=== PATIENT | female | born 1985 | race Hispanic/Latino ===

== ENCOUNTER 2021-02-24 22:24 | Emergency (ER) | payer MEDICAID ==
[2021-02-25 00:25] VITALS: BP 134/80
--- NOTE | 2021-02-25 01:27 | Emergency Department Report ---
ED General Adult HPI - General Chief complaint: Extremity Problem,Nontraumatic Stated complaint: SWELLING/PAIN IN LEG/HEADACHE POSS PREECLAMPSIA Time Seen by Provider: 02/25/21 01:25 Source: patient Mode of arrival: Ambulatory Limitations: No Limitations - Related Data Home Medications Medication Instructions Recorded Confirmed Last Taken Pnv,Calcium 72/Iron/Folic Acid 1 tab PO DAILY 12/06/13 01/28/21 12/02/13 08:00 [Pnv Plus Multivit Tab] 1 Previous Rx's Medication Instructions Recorded Last Taken Type Ibuprofen [Motrin 600 MG tab] 600 mg PO Q8H PRN #30 tablet 07/18/16 Unknown Rx Lidocain2.5%/Prilocai2.5% [Emla] 5 gm TP 1XW #1 tube 07/18/16 Unknown Rx Allergies Allergy/AdvReac Type Severity Reaction Status Date / Time No Known Allergies Allergy Verified 07/18/16 05:34 ED Review of Systems ROS: Stated complaint: SWELLING/PAIN IN LEG/HEADACHE POSS PREECLAMPSIA Other details as noted in HPI Comment: All other systems reviewed and negative ED Past Medical Hx - Past Medical History Hx Hypertension: No Hx Diabetes: No Hx Deep Vein Thrombosis: No Hx Renal Disease: No Hx Sickle Cell Disease: No Hx Seizures: No Hx Asthma: No Hx COPD: No Hx HIV: No - Surgical History Past Surgical History?: No - Social History Smoking Status: Current Every Day Smoker Substance Use Type: None - Medications Home Medications: Home Medications Medication Instructions Recorded Confirmed Last Taken Type Pnv,Calcium 72/Iron/Folic Acid 1 tab PO DAILY 12/06/13 01/28/21 12/02/13 08:00 History [Pnv Plus Multivit Tab] 1 Ibuprofen [Motrin 600 MG tab] 600 mg PO Q8H PRN #30 tablet 07/18/16 01/28/21 Unknown Rx Lidocain2.5%/Prilocai2.5% [Emla] 5 gm TP 1XW #1 tube 07/18/16 01/28/21 Unknown Rx ED Physical Exam - General Limitations: No Limitations General appearance: alert, in no apparent distress - Head Head exam: Present: atraumatic, normocephalic - Eye Eye exam: Present: normal appearance, PERRL Pupils: Present: normal accommodation - ENT ENT exam: Present: normal exam, mucous membranes moist - Neck Neck exam: Present: normal inspection - Respiratory Respiratory exam: Present: normal lung sounds bilaterally. Absent: respiratory distress - Cardiovascular Cardiovascular Exam: Present: regular rate, normal rhythm. Absent: systolic murmur, diastolic murmur, rubs, gallop - GI/Abdominal GI/Abdominal exam: Present: soft, normal bowel sounds - Extremities Exam Extremities exam: Present: normal inspection - Back Exam Back exam: Present: normal inspection - Neurological Exam Neurological exam: Present: alert, oriented X3 - Psychiatric Psychiatric exam: Present: normal affect, normal mood - Skin Skin exam: Present: warm, dry, intact, normal color. Absent: rash ED Course Vital Signs 02/24/21 22:29 Temperature 98.8 F Pulse Rate 82 Respiratory 18 Rate Blood Pressure 134/80 O2 Sat by Pulse 96 Oximetry ED Medical Decision Making - Lab Data Result diagrams: 02/25/21 01:28 02/25/21 01:28 Critical care attestation.: If time is entered above; I have spent that time in minutes in the direct care of this critically ill patient, excluding procedure time. ED Disposition Clinical Impression: Bilateral lower extremity edema Disposition: DC-01 TO HOME OR SELFCARE Condition: Stable Instructions: Peripheral Edema Additional Instructions: Please utilize LISA stockings at 15 to 20 mmHg Referrals: PRIMARY CARE, [Primary Care Provider] - 3-5 Days [facility] [Provider Group] - 3-5 Days (Sure to follow-up with the WAREHOUSE PROCESSOR no evidence of any blood clots)
[2021-02-25 01:41] LABS: Basophils # (Auto) 0.1 K/mm3 (0.0-0.1); Basophils % (Auto) 0.7 % (0.0-1.8); Eosinophils # (Auto) 0.3 K/mm3 (0.0-0.4); Hematocrit 39.7 % (30.3-42.9); Hemoglobin 13.8 gm/dl (10.1-14.3); Lymphocytes # (Auto) 3.6 K/mm3 (1.2-5.4); Lymphocytes % (Auto) 39.9 % (13.4-35.0); Mean Corpuscular HGB Conc 35 % (30-34); Mean Corpuscular Volume 89 fl (79-97); Monocytes # (Auto) 0.7 K/mm3 (0.0-0.8); Monocytes % (Auto) 7.6 % (0.0-7.3); Platelet Count 245 K/mm3 (140-440); Red Blood Count 4.47 M/mm3 (3.65-5.03); Red Cell Distribution Width 13.9 % (13.2-15.2)
[2021-02-25 03:08] LABS: Alanine Aminotransferase 15 units/L (7-56); Albumin 4.1 g/dL (3.9-5); Blood Urea Nitrogen 6 mg/dL (7-17); Calcium 9.2 mg/dL (8.4-10.2); Hemolysis Index 24
[2021-02-25 03:10] LABS: BUN/Creatinine Ratio 10
== END 2021-02-25 05:10 | disposition home or self-care (01) ==
LOC: ED 22:24
DX: R60.0 Localized edema (principal); F17.200 Nicotine dependence, unspecified, uncomplicated; Z79.899 Other long term (current) drug therapy
CPT/HCPCS: 36415; 80053; 85025; 85379

== ENCOUNTER 2021-03-19 09:04 | Day surgery (SDC) | payer MEDICAID ==
--- NOTE | 2021-03-19 09:40 | History and Physical Report ---
History of Present Illness Date of examination: 03/16/21 History of present illness: Patient has been reassessed/reevaluated H&P has been reviewed. No interval changes. Patient desires sterilization. Discussed with various methods of contraceptives including abstinence, barrier and hormonal. Discussed oral, implantable, dermal, injectable,intravaginal and intrauterine methods. Patient declined temporary contraceptives. Discuss the permanency of sterilization. High risk of regret and 0.5 to 1% risk of failure. Questions answered Patient understands and desires to proceed with bilateral salpingectomy Vital Signs: Patient Profile: 35 Years Old Female LMP: 03/04/2021 Height: 66 inches Weight: 150 pounds BMI: 24.21 Temp: 98.2 degrees F BP sittin / 80 (right arm) Menstrual History: LMP (date): 03/04/2021 On BCP's at conception: no Current Method of Contraception: None, nothing Date of Last Pap Smear: 07/09/2020 Past History : 5 Term Births: 2 Premature Births: 1 Living Children: 3 Para: 3 Mult. Births: 0 Prev : 0 Aborta: 2 Elect. Ab: 2 Spont. Ab: 0 Ectopics: 0 # 1 Delivery date: 1999 Delivery type: EAB Comments: D & C # 2 Delivery date: 2001 Delivery type: EAB Comments: D & C # 3 Delivery date: 2013 Weeks Gestation: 36 Delivery type: Delivery location: [facility] [place] Sex: Female weight: 5 lbs 14 oz Comments: SROm with PTL and delivery at 36 wga # 4 Delivery date: 07/18/2016 Weeks Gestation: term labor: no Delivery type: Anesthesia type: none Delivery location: [facility] Infant Sex: male weight: 8.19 Comments: mild shoulder dystocia # 5 Delivery date: 01/28/2021 Weeks Gestation: 38 Delivery type: Vaginal Hours of labor: 6 Anesthesia type: none Delivery location: [facility] Sex: male weight: 6.63 Name: juan Comments: Inadequate care FLARE MAN History Uterine Surgery (not C/S): negative Operations: D&C:EAB x2 Anesthesia Complications: negative Abnormal PAP: positive Uterine Anomaly: negative MICHAEL Exposure: negative Infertility: negative Infection History HIV Risk Eval: no Personal hx. of genital herpes: no Partner hx. of genital herpes: no Hx of STD: none Current Allergies (reviewed today): * POLLEN (Critical) Past Medical History: Negative Past Medical History Past Surgical History: D&C:EAB x2 Family History Summary: Other Family Member - Has No Family History of Ovarvian Cancer - Entered On: 03/16/2021 Other Family Member - Has No Family History of Brain Cancer - Entered On: 03/16/2021 Other Family Member - Has Family History of Lung Cancer - Entered On: 03/16/2021 Other Family Member - Has Family History of Hyperlipidemia - Entered On: 03/16/2021 Other Family Member - Has Family History Breast Cancer - Entered On: 03/16/2021 Risk Factors: Smoked Tobacco Use: Current every day smoker Cigarettes: Yes -- 7 ciggs pack(s) per day,Smokeless Tobacco Use: Never Counseled to quit/cut down: no Passive smoke exposure: no Drug use: no HIV high-risk behavior: no Caffeine use: 4 drinks per day Alcohol use: yes Type: occ Exercise: no Seatbelt use: 100 % PAP Smear History: Date of Last PAP Smear: 07/09/2020 Review of Systems General Denies fever, chills, sweats, anorexia, fatigue, weakness, malaise, weight loss and sleep disorder. Denies vaginal discharge, incontinence, dysuria, hematuria, urinary frequency, amenorrhea, menorrhagia, abnormal vaginal bleeding, pelvic pain, genital sores, decreased libido, painful periods, painful sex, urinary urgency, hot flashes, vaginal dryness, vaginal itching and vaginal odor. CV Denies chest pains, palpitations, syncope, dyspnea on exertion, orthopnea, PND and peripheral edema. Resp Denies cough, dyspnea at rest, excessive sputum, hemoptysis, wheezing and pleurisy. GI Denies nausea, vomiting, diarrhea, constipation, change in bowel habits, abdominal pain, melena, hematochezia, jaundice, gas/bloating, indigestion/heartburn, dysphagia and odynophagia. Breast Denies left breast lump, right breast lump, nipple discharge, bloody discharge from nipple, breast pain, abnormal mammogram and breast enlargement. Psych Denies depression, anxiety, irritability and mood swings. Past History Past Medical History: other (SEE HPI FOR DETAILS) Past Surgical History: Other (SEE HPI FOR DETAILS) Social history: AND/DNR-allow natural , other (SEE HPI FOR DETAILS) Family history: other (SEE HPI FOR DETAILS) Medications and Allergies Allergies Allergy/AdvReac Type Severity Reaction Status Date / Time No Known Allergies Allergy Verified 03/17/21 18:28 Home Medications Medication Instructions Recorded Confirmed Last Taken Type No Known Home Medications [No 03/17/21 03/17/21 Unknown History Reported Home Medications] Review of Systems Constitutional: other (SEE HPI FOR DETAILS) Exam - Physical Exam Narrative exam: HEENT: normocephalic, no lesions or deformities Skin no abnormal lesions or rashes Chest: respiratory effort normal, clear to auscultation CV: regular, normal S1-S2, no murmur, no rub, no gallop Abdomen: soft, non-tender, no masses Neuro: no gross anomalities Extremities: no clubbing, cyanosis, or edema FLARE MAN Exams Vulva/Vagina: normal appearance, no lesions. Cervix: No lesions; no cervical motion tenderness Uterus: normal size and position, midline, mobile Adnexae: no masses or tenderness Rectovaginal: exam defered Assessment and Plan - Patient Problems (1) Sterilization Current Visit: No Status: Acute Plan to address problem: Patient desires sterilization.Discuss the permanency of sterilization. High risk of regret and 0.5 to 1% risk of failure. Discussed options of tubal blockage and salpingectomy and it's possible benefit of preventing ovarian cancer and increased risks of bleeding during the procedure. Discuss the risks of the surgery including infection, bleeding possibly heavy enough to require a blood transfusion, possilble damage to bowel, bladder or ureter. Patient understands and desires to proceed with salpingectomy.
--- NOTE | 2021-03-19 09:41 | Anesthesia Day of Surgery ---
Anesthesia Day of Surgery - Day of Surgery Patient Examined: Yes Patient H&P Reviewed: Yes Patient is NPO: Yes
[2021-03-19] MEDS ORDERED: ACETAMINOPHEN 500 MG TAB PO ONE (09:42)
[2021-03-19] MEDS ORDERED: HYDROmorphone 1 MG/1 ML INJ IV PRN (09:42)
[2021-03-19] MEDS ORDERED: ONDANSETRON 4 MG/2 ML INJ IV PRN (09:42)
[2021-03-19] MEDS ORDERED: MAGNESIUM OXIDE 400 MG TAB PO ONE (09:42)
--- NOTE | 2021-03-19 09:42 | Anesthesia Consultation ---
Anesthesia Consult and Med Hx Date of service: 03/19/21 - Airway Anesthetic Teeth Evaluation: Chipped ROM Head & Neck: Adequate Mental/Hyoid Distance: Adequate Mallampati Class: Class I Intubation Access Assessment: Good - Pre-Operative Health Status ASA Pre-Surgery Classification: ASA2 Proposed Anesthetic Plan: General - Pulmonary Hx Smoking: Yes Hx Asthma: No COPD: No - Cardiovascular System Hx Hypertension: No - Central Nervous System Hx Seizures: No Hx Psychiatric Problems: No - Gastrointestinal Hx Gastroesophageal Reflux Disease: Yes (occasional dietary) - Endocrine Hx Renal Disease: No Hx End Stage Renal Disease: No Hx Hypothyroidism: No Hx Hyperthyroidism: No - Hematic Hx Anemia: No Hx Sickle Cell Disease: No - Other Systems Hx Alcohol Use: Yes (Occas) Hx Cancer: No
[2021-03-19] MEDS ORDERED: LACTATED RINGERS 1,000 ML IV SCH (09:45)
[2021-03-19] MEDS ORDERED: GLYCOPYRROLATE 0.4 MG/2 ML INJ ONE (10:00)
[2021-03-19] MEDS ORDERED: dexAMETHasone 20 MG/5 ML VIAL ONE (10:00)
[2021-03-19] MEDS ORDERED: ROCURONIUM 50 MG/5 ML INJ IV ONE (10:00)
[2021-03-19] MEDS ORDERED: MIDAZOLAM 2 MG/2 ML INJ IV NR (10:00)
[2021-03-19] MEDS ORDERED: KETOROLAC 30 MG/1 ML INJ ONE (10:00)
[2021-03-19] MEDS ORDERED: CELECOXIB 200 MG CAP PO NR (10:00)
[2021-03-19] MEDS ORDERED: NEOSTIGMINE 10MG/10 ML INJ MDV ONE (10:00)
[2021-03-19] MEDS ORDERED: LIDOCAINE MPF (2%) 20 MG/1 ML VIAL 5 ML ONE (10:15)
[2021-03-19] MEDS ORDERED: ONDANSETRON 4 MG/2 ML INJ ONE (10:15)
[2021-03-19] MEDS ORDERED: fentaNYL 100 MCG/2 ML INJ ONE ×2 (10:15→10:56)
[2021-03-19] MEDS ORDERED: propofoL 200 MG/20 ML VIAL IV ONE (10:16)
[2021-03-19] MEDS ORDERED: BUPIVACAINE/PF (0.5%) 5 MG/1 ML 10 ML VIAL INFILTRATI ONE (11:09)
[2021-03-19] MEDS ORDERED: SODIUM CHLORIDE 0.9% IRR 1,500 ML BOTTLE IR ONE (11:09)
--- NOTE | 2021-03-19 11:37 | Operative Report ---
Operative Report Operative Report: Date of procedure: March 19, 2021 Pre-operative diagnosis: Patient desires permanent sterilization Post-operative diagnosis: Same Procedure name(s): Laparoscopic bilateral salpingectomy Surgeon: Yovanny Lincoln MD Diet Kitchen Cook: [] Anesthesia: General endotracheal EBL: Minimal Complications: None Findings: Patient with uterus approximately 8-10 weeks in size with normal fallopian tubes bilaterally Specimen(s): Bilateral fallopian tubes Patient was brought in the operating room. General anesthesia was induced without difficulty. She was placed in dorsal lithotomy position. Prepped and draped in usual sterile manner. Her urinary bladder with was emptied with a red rubber catheter. Speculum placed in her vagina and Sargis uterine manipulator was placed for uterine manipulation without difficulty. Attention was then switched to the patient's abdomen. An infra-umbilical incision was made with a scalpel. This incision was spread with a hemostat. A 5 mm trocar was placed in this incision while lifting high the abdominal wall. Intra-abdominal presence was verified directly with the laparoscope. The patient was then insufflated to approximately 3 L of CO2 gas. The patient's findings as noted above. An accessory puncture was made suprapubically. The 8 mm trocar was placed through this incision under direct visualization with no evidence of internal organ damage. Each of the fallopian tube were identified by its fimbriated end. Starting with the right fallopian tube approximately 1 to 2 cm from the cornea LigaSure device was used to cross sectional cut the tube. From this point the ligature device was used to cauterize and cut the mesosalpinx until the fimbriated end was reached detaching the tube. The fallopian tube was then removed through the accessory port attention was then switched to the contralateral tube. Same procedure was performed detaching that tube and removed it through the accessory port. The remaining stump was inspected and found to be hemostatic. At this time all instruments were removed. The patient was de-insufflated. The skin incisions were closed subcuticularly with 4-0 Vicryl. Marcaine was injected into the surgical incisions, for postoperative pain relief. The patient tolerated procedure well. She was awakened in the operating room and accompanied to the recovery room in good condition.
[2021-03-19] MEDS: HYDROmorphone 1 MG/1 ML INJ IV PRN ×2 (11:40→11:50)
--- NOTE | 2021-03-19 11:41 | Short Stay Summary ---
Short Stay Documentation Date of service: 03/19/21 - History H&P: dictated Past Medical History: other (SEE HPI FOR DETAILS) Past Surgical History: Other (SEE HPI FOR DETAILS) Social history: AND/DNR-allow natural , other (SEE HPI FOR DETAILS) - Allergies and Medications Current Medications: Allergies No Known Allergies Allergy (Verified 03/17/21 18:28) Home Medications Medication Instructions Recorded Confirmed Last Taken Type Ibuprofen [Motrin] 800 mg PO TID PRN #30 tablet 03/19/21 Unknown Rx oxyCODONE /ACETAMINOPHEN [Percocet 1 - 2 tab PO Q6HR PRN #10 tablet 03/19/21 Unknown Rx 5/325 mg] Active Medications Celecoxib (Celecoxib 200 Mg Cap) 400 mg PO PREOP NR Stop: 03/19/21 23:59 Last Admin: 03/19/21 09:55 Dose: 400 mg Documented by: Hydromorphone HCl (Hydromorphone 1 Mg/1 Ml Inj) 0.25 mg IV Q10MIN PRN PRN Reason: Pain, Moderate (4-6) Stop: 03/19/21 23:59 Hydromorphone HCl (Hydromorphone 1 Mg/1 Ml Inj) 0.5 mg IV Q10MIN PRN PRN Reason: Pain , Severe (7-10) Stop: 03/19/21 23:59 Lactated Ringer's (Lactated Ringers) 1,000 mls @ 100 mls/hr IV DIRECT SAVANNA Last Admin: 03/19/21 09:55 Dose: 100 mls/hr Documented by: Midazolam HCl (Midazolam 2 Mg/2 Ml Inj) 2 mg IV PREOP NR Stop: 03/19/21 23:59 Last Admin: 03/19/21 09:56 Dose: 2 mg Documented by: Ondansetron HCl (Ondansetron 4 Mg/2 Ml Inj) 4 mg IV ONCE PRN PRN Reason: Nausea And Vomiting - Physical exam General appearance: no acute distress HEENT: Atraumatic Lungs: Clear to auscultation Breasts: deferred Heart: Regular rate Gastrointestinal: normal, tenderness, distended (Appropriately postop appropriately postop laparoscopy) Female Genitourinary: normal, rectocele Extremities: no ischemia - Brief post op/procedure progress note Date of procedure: 03/19/21 (See dictated operative note for details) - Hospital course Hospital course: Patient was admitted underwent the above him procedure without any complications. Patient will be discharged with follow-up in office in 1-2 weeks for postop check. - Disposition Condition at discharge: Good Disposition: DC-01 TO HOME OR SELFCARE - Discharge Diagnoses (1) Sterilization Status: Acute Short Stay Discharge Plan Activity: advance as tolerated Diet: regular Wound: open to air Additional Instructions: Patient to call office for any fever, chills, nausea, vomiting or pain not controlled by pain medication. Follow up with: ELLA MARCANO MD [Primary Care Provider] - 7 Days Prescriptions: Ibuprofen [Motrin] 800 mg PO TID PRN #30 tablet PRN Reason: Pain oxyCODONE /ACETAMINOPHEN [Percocet 5/325 mg] 1 - 2 tab PO Q6HR PRN #10 tablet PRN Reason: Pain
[2021-03-19 13:17] VITALS: BP 118/73
--- NOTE | 2021-03-19 16:10 | Post Anesthesia Evaluation ---
- Post Anesthesia Evaluation Patient Participated: Yes Airway Patent: Yes Stable Respiratory Function: Yes Nausea/Vomiting: No Temp > 96.8F: Yes Pain Manageable: Yes Adequeate Hydration: Yes Anesthesia Complications: No Block Receding Appropriately: Not Applicable Patient on Ventilator: No
== END 2021-03-19 13:30 | disposition home or self-care (01) ==
LOC: OR 09:04
PROVIDERS: ATTEND Obstetrics & Gynecology
DX: Z30.2 Encounter for sterilization (principal); G43.909 Migraine, unspecified, not intractable, without status migrainosus; K21.9 Gastro-esophageal reflux disease without esophagitis; Z79.899 Other long term (current) drug therapy; F17.210 Nicotine dependence, cigarettes, uncomplicated; Z72.89 Other problems related to lifestyle; Z98.890 Other specified postprocedural states; Z80.8 Family history of malignant neoplasm of other organs or systems
CPT/HCPCS: 58670; 81025; 88302; J1100; J1170; J1885; J2250; J2405; J2704; J2710; J3010; J7120